=== PATIENT | female | born 1970 | race Hispanic/Latino ===

== ENCOUNTER 2019-02-09 12:37 | Inpatient (IN) | payer BC ==
[2019-02-09 13:44] LABS: SQUAMOUS EPITHIAL 8 /hpf (0-5); URINE BACTERIA RARE (<OCC); URINE BILIRUBIN 1+ (NEGATIVE); URINE BLOOD NEGATIVE (NEGATIVE); URINE CLARITY Hazy (Clear); URINE COLOR Amber (YELLOW); URINE GLUCOSE (UA) NORMAL (Normal); URINE LEUKOCYTE ESTERASE NEG Leu/uL (Negative); URINE PROTEIN 2+ mg/dL (NEGATIVE)
[2019-02-09] MEDS ORDERED: Sodium Chloride 0.9% 1,000 ML IV ONE (13:46)
[2019-02-09 13:58] LABS: BARBITURATES, UR NEGATIVE (NEGATIVE); PHENCYCLIDINE, UR NEGATIVE (NEGATIVE)
[2019-02-09] MEDS ORDERED: Sodium Chloride 0.9% 1,000 ML ONE (13:58)
[2019-02-09 14:00] LABS: BASO % 0.4 % (0.0-2.0); EOS % 0.2 % (0.0-4.0); HEMOGLOBIN 15.4 g/dL (11.0-16.0); LYMPH # 1.2 K/uL (1.0-4.3); LYMPH % 15.2 % (20.0-40.0); MEAN CELL VOLUME 102.2 fL (81.0-99.0); MEAN CORPUSCULAR HEMOGLOBIN 35.5 pg (27.0-31.0); MEAN CORPUSCULAR HGB CONC 34.8 g/dL (33.0-37.0); MEAN PLATELET VOLUME 8.8 fL (7.2-11.7); MONO # 0.5 K/uL (0.0-0.8); MONO % 6.7 % (0.0-10.0); NEUT # 6.2 K/uL (1.8-7.0); NEUT % 77.5 % (50.0-75.0); RBC 4.34 Mil/uL (3.80-5.20); RED CELL DISTRIBUTION WIDTH 13.3 % (11.5-14.5); WHITE BLOOD COUNT 8.1 K/uL (4.8-10.8)
[2019-02-09 14:05] LABS: BENZODIAZEPINES, UR POSITIVE (NEGATIVE); OPIATES, UR POSITIVE (NEGATIVE)
--- NOTE | 2019-02-09 14:12 | C.PDOC ---
History Of Present Illness 48 y/o female pt presents to the ER c/o abdominal pain, vomiting, diarrhea, and gas x1 day. Pt reports she is here for detox for both heroin and alcohol. Last heroin use was 30 minutes ago 1 bag, and last alcohol use was yesterday. Pt reports she is unable to consume any food without vomiting. Pt denies fever and chills. Last detox was 1.5 years ago in [place]. Time Seen by Provider: 02/09/19 13:31 Chief Complaint (Nursing): Substance Abuse History Per: Patient History/Exam Limitations: no limitations Onset/Duration Of Symptoms: Days (x1) Current Symptoms Are (Timing): Still Present Location Of Pain/Discomfort: Diffuse Past Medical History Reviewed: Historical Data, Nursing Documentation, Vital Signs Vital Signs: Last Vital Signs Temp 98.4 F 02/09/19 12:49 Pulse 106 H 02/09/19 12:49 Resp 18 02/09/19 12:49 BP 168/96 H 02/09/19 12:49 Pulse Ox 99 02/09/19 12:49 - Medical History PMH: Back Problems (Herniated Disc x2) Family History: States: Unknown Family Hx - Social History Hx Tobacco Use: Yes Hx Alcohol Use: Yes Hx Substance Use: Yes - Immunization History Hx Tetanus Toxoid Vaccination: No Hx Influenza Vaccination: No Hx Pneumococcal Vaccination: No Review Of Systems Constitutional: Positive for: Other (detox ). Negative for: Fever, Chills Cardiovascular: Negative for: Chest Pain, Palpitations Respiratory: Negative for: Shortness of Breath Gastrointestinal: Positive for: Nausea, Vomiting, Abdominal Pain, Diarrhea, Other (gas). Negative for: Hematochezia, Hematemesis Genitourinary: Negative for: Dysuria Neurological: Negative for: Headache, Dizziness Psych: Positive for: Withdrawal. Negative for: Suicidal ideation Physical Exam - Physical Exam Appears: Non-toxic, No Acute Distress Skin: Warm, Dry Head: Atraumatic, Normacephalic Eye(s): bilateral: Normal Inspection Ear(s): Bilateral: Normal Nose: Normal Oral Mucosa: Moist Throat: Normal, No Erythema, No Exudate Neck: Normal ROM, Supple Chest: Symmetrical Cardiovascular: Rhythm Regular Respiratory: Normal Breath Sounds, No Accessory Muscle Use, No Wheezing Gastrointestinal/Abdominal: Bowel Sounds (high pitched bowel sound ), Soft, Tenderness (epigastric ), No Distention, No Rebound Back: No CVA Tenderness Extremity: Normal ROM (x4) Extremity: Bilateral: Atraumatic Neurological/Psych: Oriented x3, Normal Speech, Normal Motor, Normal Sensation Gait: Steady ED Course And Treatment - Laboratory Results Result Diagrams: 02/09/19 13:56 02/09/19 13:56 Lab Results: Urine Color Kristie (YELLOW) 02/09/19 13:26 Urine Clarity Hazy (Clear) 02/09/19 13:26 Urine pH 6.0 (5.0-8.0) 02/09/19 13:26 Ur Specific [place] 1.026 (1.003-1.030) 02/09/19 13:26 Urine Protein 2+ mg/dL (NEGATIVE) H 02/09/19 13:26 Urine Glucose (UA) Normal mg/dL (Normal) 02/09/19 13:26 Urine Ketones Trace mg/dL (NEGATIVE) 02/09/19 13:26 Urine Blood Negative (NEGATIVE) 02/09/19 13:26 Urine Nitrate Negative (NEGATIVE) 02/09/19 13:26 Urine Bilirubin 1+ (NEGATIVE) H 02/09/19 13:26 Urine Urobilinogen 4.0 mg/dL (0.2-1.0) H 02/09/19 13:26 Ur Leukocyte Esterase Neg Leyla/uL (Negative) 02/09/19 13:26 Urine WBC (Auto) 3 /hpf (0-5) 02/09/19 13:26 Urine RBC (Auto) 1 /hpf (0-3) 02/09/19 13:26 Ur Squamous Epith Cells 8 /hpf (0-5) H 02/09/19 13:26 Urine Bacteria Rare (<OCC) 02/09/19 13:26 O2 Sat by Pulse Oximetry: 99 (RA) Pulse Ox Interpretation: Normal Medical Decision Making Medical Decision Making: plans: -- labs -- IV fluids -- pepcid -- zofran -- librium -- POC urine Patient reassessed. Symptoms have greatly improved. She is laying comfortable in bed. Labs reviewed; Slightly low Potassium. K-dur 20mg PO given. Patient is stable for transfer to Detox floor Admitted under Dr. 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 - Scribe Statement The provider has reviewed the documentation as recorded by the Alex Sullivan Do All medical record entries made by the Alex were at my direction and personally dictated by me. I have reviewed the chart and agree that the record accurately reflects my personal performance of the history, physical exam, medical decision making, and the department course for this patient. I have also personally directed, reviewed, and agree with the discharge instructions and disposition. Decision To Admit - Pt Status Changed To: Hospital Disposition Of: Inpatient - Admit Certification Admit to Inpatient:: After my assessment, the patient will require hospitalization for at least two midnights. This is because of the severity of symptoms shown, intensity of services needed, and/or the medical risk in this patient being treated as an outpatient. - InPatient: Physician Admission Certification:: patient will need at least 2 days to detox from severe alcohol use disorder - . Bed Request Type: Detox Patient Diagnosis: Alcohol use disorder, severe, dependence
[2019-02-09 14:15] LABS: ALB/GLOB RATIO 1.5 (1.0-2.1); ALBUMIN 5.2 g/dL (3.5-5.0); BLOOD UREA NITROGEN 7 mg/dL (7-17); CALCIUM 9.8 mg/dl (8.6-10.4); GFR NON-AFRICAN AMERICAN > 60; LIPASE 50 U/L (23-300)
[2019-02-09 14:21] LABS: ALT/SGPT 48 U/L (9-52); AST/SGOT 103 U/L (14-36)
[2019-02-09] MEDS ORDERED: Potassium Chloride 20 mEq ER Tab PO STA (15:04)
[2019-02-09] MEDS ORDERED: Potassium Chloride 20 mEq ER Tab PO ONE (15:32)
--- NOTE | 2019-02-09 15:43 | PCM.BM ---
<Omid Plaza - Last Filed: 02/09/19 15:40> Treatment Plan Problems - Problems identified on initial assessmt knowledge deficit : alcohol ,opiate use Date Initiated: 02/09/19 Time Initiated: 15:41 Assessment reference: NA Status: Active anxiety related to substance use Date Initiated: 02/09/19 Time Initiated: 15:42 Assessment reference: NA Status: Active denial Date Initiated: 02/09/19 Time Initiated: 15:43 Assessment reference: NA Status: Active Treatment assets and liabiliti Patient Assests: cooperative, ADL independent, cognitively intact Patient Liabilities: substance abuse - Milieu Protocol Maintain good personal hygiene: daily Encourage regular showers, daily Remind pa tient to perform daily oral care, daily Assist patient to perform ADL's Conduct patient checks and document Observation sheet: Q15 minutes Maintain personal safety: every shift Educate patient to report safety concerns to staff, every shift Monitor environment for contraband/sharps Medication safety: Monitor for expected outcome, potential side effects: every shift, Assess barriers to learning: every shift, Assess readiness for medication education: every shift <Kevin Martines - Last Filed: 02/10/19 23:22> - Diagnosis (1) Alcohol use disorder, severe, dependence Status: Acute Interventions: 02/09/19 23:22 * Assess 7x/week regarding severity of withdrawal * Educate regarding risks, benefits, side effects and alternatives of medications * Use Motivational Interviewing for abstinence * Use CBT for relapse prevention * Medication management for withdrawal symptoms * Encourage medication assisted treatment * <Oneida Owusu - Last Filed: 02/12/19 13:42> Family Contact Family involvement: Fela/SO not involved - Goals for Treatment Patient goals for treatment: Complete detox and transition to co-occurring IOP at [facility]. Discharge/Continuing Care - Education Needs Education Needs: Patient Medication, Patient Diagnosis/Disease Process, Patient Coping Skills, Patient Anger Management skills, Patient Placement options, Patient Community resources - Discharge Discharge Criteria: No longer exhibiting s/s of withdrawal, Reduction of target symptoms Discharge to:: Home - Treatment Team Participation Patient/Family/SO Statement: 02/12/19 13:41 "I'll go to IOP so I can return to work..." Discussed with Family/SO: No Was Patient/Family/SO present at Treatment Team Meeting: Yes
[2019-02-09] MEDS ORDERED: Aluminum Hydroxide/Magnesium Hydroxide Susp (30 mL) PO PRN (16:06)
--- NOTE | 2019-02-09 16:12 | PCM.PSYCH ---
Initial Psychiatric Evaluation - Initial Psychiatric Evaluation Type of Admission: Voluntary Legal Status: Capacity Chief Complaint (in patient's own words): "I am very sick!" History of Present Illness and Precipitating Events: The pt is seen, chart reviewed and case discussed She is a 48 y/o WF, , living with her BF, not working. BF is not supportive bc he too uses. She may be homeless bc of that She is here for opioid and alcohol detox: She admits to using up to 15 bags of heroin and 3-4 percocets per day. She did overdose within the last few months but not need narcan. She started 1.5 years ago and this is her second detox. She also drinks 10 drinks or more a day. Has had blackouts but no seizures. She may have had DTs but she is not sure. She also claims she doesn't let herself get into bad withdrawal as she keeps drinking. Smokes 2 ppd Denies other cigarettes Pt was in very bad withdrawal with 2-day long throwing up and not eating anything, along with many other wdw sxs CIWA>12 COWS is 9 and increasing - she prefers buprenorphine Psych: She suffers from depression and severe anxiety - no meds yet. NOt actively suicidal but has passive tiffany ideas. Tearful Medical; Back pain from disc - complicates her recovery as she resorts to percocets and heroin. Also, she has significant GI problems - given IV fluids in ED and meds Family psych: Both parents were alcoholics, brother used heroin and of AIDS Current Medications: Active Medications Generic Name Dose Route Start Last Admin Trade Name Freq PRN Reason Stop Dose Admin Al Hydrox/Mg Hydrox/Simethicone 30 ml 02/09/19 16:06 Maalox 30 Ml PO TID PRN Indigestion / Heartburn Clonidine HCl 0.1 mg 02/09/19 16:06 Catapres PO Q4 PRN COWS Score More or Equal to 5 Folic Acid 1 mg 02/09/19 16:15 Folic Acid PO DAILY SOO Gabapentin 300 mg 02/09/19 18:00 Neurontin PO BID SOO Hydroxyzine HCl 50 mg 02/09/19 16:09 Atarax PO Q6H PRN Anxiety Ibuprofen 600 mg 02/09/19 16:06 Motrin Tab PO Q6 PRN Pain, moderate (4-7) Loperamide HCl 2 mg 02/09/19 16:06 Imodium PO Q8 PRN Diarrhea Multivitamins 1 tab 02/09/19 16:15 Hexavitamin PO DAILY [facility] Ondansetron HCl 4 mg 02/09/19 16:06 Zofran Tab PO Q8 PRN Nausea/Vomiting Pantoprazole Sodium 20 mg 02/10/19 10:00 Protonix Ec Tab PO DAILY [facility] Thiamine HCl 100 mg 02/09/19 16:15 Vitamin B1 Tab PO DAILY [facility] Trazodone HCl 50 mg 02/09/19 16:08 Desyrel PO HS PRN Insomnia Past Psychiatric History - Past Psychiatric History Previous Treatment History: Intensive Outpatient Pertinent Medical Hx (Current Medical&Sleep Prob, Allergies): Allergies Allergy/AdvReac Type Severity Reaction Status Date / Time No Known Allergies Allergy Verified 02/09/19 12:53 Oxycodone HCl/Acetaminophen [Percocet 10-325 mg Tablet] 1 tab PO TID 02/09/19 Review of Systems - Psychiatric Psychiatric: Abnormal Sleep Pattern, Anhedonia, Anxiety, Change in Appetite, Depression, Difficulty Concentrating, Hopelessness, Irritability, Mood Swings, Panic Attacks. absent: Hallucinations, Homicidal Ideation, Suicidal Ideation (no plans or urge) Mental Status Examination - Personal Presentation Personal Presentation: Looks older than stated age - Affect Affect: Constricted - Motor Activity Motor Activity: Calm - Reliability in Providing Information Reliability in Providing Information: Good - Speech Speech: Organized - Mood Mood: Depressed, Anxious - Formal Thought Process Formal Thought Process: No Impairment - Cognitive Functions Orientation: Person, Place, Situation, Time Sensorium: Drowsy, Lethargic Attention/Concentration: Easily distracted Estimate of Intelligence: Average Judgement: Intact, as evidence by: Insight regarding need for hospitalization Memory: Recent intact, as evidence by: 3/3 object recall, Remote impaired as evidenced by: Inability to recall sig life events - Risk Risk: Withdrawal, Diminished functioning - Strength & Assets Inventory Strength & Assets Inventory: Cooperative - Limitations Limitations: Other DSM 5 DX - DSM 5 DSM 5 Diagnosis: Opioid withdrawal Alcohol withdrawal Opioid use d/o - severe Alcohol use d/o - severe Tobacco use d/o - severe Major depression, recurrent, severe, w/o psychosis MEME Cannabis use d/o - severe - Recommended/Plan of Treatment Treatment Recommendations and Plan of Treatment: Taper with subutex and librium Remeron for depression Protonix EC for stomach Gabapentin for augmentation and anxiety As needed medications All risks, benefits and alternatives of the meds discussed, and the pt agreed and understood. Attend groups and activities Supportive therapy and psychoeducation [place] for abstinence CBT for relapse prevention Encourage MAT Refer to rehab or IOP, and self-help groups Teach healthy lifestyle methods, i.e. diet, exercise, meditation Smoking cessation with SC Nicotine patch if needed 34 min Projected ELOS: 4-5 days Prognosis: good w treatment
[2019-02-09] MEDS: Multiple Vitamins Tab PO SCH (17:21)
[2019-02-10] MEDS ORDERED: Buprenorphine Hydrochloride 2 mg SL ONE ×3 (07:15→12:45)
[2019-02-10] MEDS: Pantoprazole 20 mg EC Tab PO SCH (10:08)
[2019-02-10] MEDS: Multiple Vitamins Tab PO SCH (10:08)
--- NOTE | 2019-02-10 10:53 | PCM.PYCHPN ---
Psychiatric Progress Note - Psychiatric Progress Note Patient seen today, length of contact: 15 min Patient Chief Complaint: I am feeling very anxious.' Problems Identified/Issues Discussed: Patient seen and evaluated, chart reviewed and discussed with the nurse. Patient reports withdrawal symptoms including anxiety, headaches, cramps, joint pains and nausea. She reports anxiety, irritability and poor sleep. However, she denies any feelings of hopelessness or helplessness. She denies any suicidal ideation or homicidal ideation. She denies any qa auditor or visual hallucinations. She is tolerating the withdrawal protocol very well and denies any side effects. Supportive therapy was given. Medication Change: Yes Medical Record Reviewed: Yes Mental Status Examination - Cognitive Function Orientation: Person, Place, Situation, Time Memory: Intact Attention: WNL Concentration: Poor Association: WNL Fund of Knowledge: Poor - Mood Mood: Anxious - Affect Affect: Constricted - Speech Speech: Soft - Formal Thought Process Formal Thought Process: No Impairment - Suicidal Ideation Suicidal Ideation: No - Homicidal Ideation Homicidal Ideation: No Goal/Treatment Plan - Goal/Treatment Plan Need for Continued Stay: Remain at risks for inpatient hospitalization Progress Toward Problem(s) and Goals/Treatment Plan: Opioid withdrawal Alcohol withdrawal Opioid use d/o - severe Alcohol use d/o - severe Tobacco use d/o - severe Major depression, recurrent, severe, w/o psychosis MEME Cannabis use d/o - severe Taper with subutex and librium Remeron for depression Protonix EC for stomach Gabapentin for augmentation and anxiety As needed medications All risks, benefits and alternatives of the meds discussed, and the pt agreed and understood. Attend groups and activities Supportive therapy and psychoeducation [place] for abstinence CBT for relapse prevention Encourage MAT Refer to rehab or IOP, and self-help groups Teach healthy lifestyle methods, i.e. diet, exercise, meditation Smoking cessation with [place] Nicotine patch if needed - Smoking Cessation Smoking Cessation Initiated: No
[2019-02-11] MEDS: Buprenorphine Hydrochloride 2 mg SL SCH (09:23)
[2019-02-11] MEDS: Multiple Vitamins Tab PO SCH (09:24)
[2019-02-11] MEDS: Pantoprazole 20 mg EC Tab PO SCH (09:24)
--- NOTE | 2019-02-11 12:02 | PCM.PYCHPN ---
Psychiatric Progress Note - Psychiatric Progress Note Patient seen today, length of contact: 15 min Patient Chief Complaint: I am feeling less anxious than yesterday' Problems Identified/Issues Discussed: Patient seen and evaluated, chart reviewed and discussed with the nurse. As per the staff, she is little better than yesterday. Patient still reports withdrawal symptoms including anxiety, headaches, cramps, joint pains and nausea. She reports some improvement in her anxiety, and irritability. She denies any suicidal ideation or homicidal ideation. She denies any information technology auditor or visual hallucinations. She is tolerating the withdrawal protocol very well and denies any side effects. Supportive therapy was given. Medication Change: Yes Medical Record Reviewed: Yes Mental Status Examination - Cognitive Function Orientation: Person, Place, Situation, Time Memory: Intact Attention: WNL Concentration: Poor Association: WNL Fund of Knowledge: Poor - Mood Mood: Anxious - Affect Affect: Constricted - Speech Speech: Soft - Formal Thought Process Formal Thought Process: No Impairment - Suicidal Ideation Suicidal Ideation: No - Homicidal Ideation Homicidal Ideation: No Goal/Treatment Plan - Goal/Treatment Plan Need for Continued Stay: Remain at risks for inpatient hospitalization Progress Toward Problem(s) and Goals/Treatment Plan: Opioid withdrawal Alcohol withdrawal Opioid use d/o - severe Alcohol use d/o - severe Tobacco use d/o - severe Major depression, recurrent, severe, w/o psychosis MEME Cannabis use d/o - severe Taper with subutex and librium Remeron for depression Protonix EC for stomach Gabapentin for augmentation and anxiety As needed medications All risks, benefits and alternatives of the meds discussed, and the pt agreed and understood. Attend groups and activities Supportive therapy and psychoeducation [place] for abstinence CBT for relapse prevention Encourage MAT Refer to rehab or IOP, and self-help groups Teach healthy lifestyle methods, i.e. diet, exercise, meditation Smoking cessation with NM Nicotine patch if needed - Smoking Cessation Smoking Cessation Initiated: No
[2019-02-11 20:44] VITALS: RESP 18
[2019-02-12] MEDS: Buprenorphine Hydrochloride 2 mg SL SCH (09:31)
[2019-02-12] MEDS: Multiple Vitamins Tab PO SCH (09:31)
[2019-02-12] MEDS: Pantoprazole 20 mg EC Tab PO SCH (09:31)
--- NOTE | 2019-02-12 13:34 | PCM.PYCHPN ---
Psychiatric Progress Note - Psychiatric Progress Note Patient seen today, length of contact: 15 min Patient Chief Complaint: "I am very sick!" Medication Change: Yes (detox changes daily) Medical Record Reviewed: Yes Mental Status Examination - Cognitive Function Orientation: Person, Place, Situation, Time Memory: Intact Attention: WNL Concentration: Poor Association: WNL Fund of Knowledge: Poor - Mood Mood: Anxious - Affect Affect: Constricted - Speech Speech: Soft - Formal Thought Process Formal Thought Process: No Impairment - Suicidal Ideation Suicidal Ideation: No - Homicidal Ideation Homicidal Ideation: No Goal/Treatment Plan - Goal/Treatment Plan Need for Continued Stay: Remain at risks for inpatient hospitalization Progress Toward Problem(s) and Goals/Treatment Plan: Taper with subutex and librium Remeron for depression Protonix EC for stomach Gabapentin for augmentation and anxiety As needed medications All risks, benefits and alternatives of the meds discussed, and the pt agreed and understood. Attend groups and activities Supportive therapy and psychoeducation [place] for abstinence CBT for relapse prevention Encourage MAT Refer to rehab or IOP, and self-help groups Teach healthy lifestyle methods, i.e. diet, exercise, meditation Smoking cessation with [place] Nicotine patch if needed 34 min
[2019-02-12 17:34] LABS: ALB/GLOB RATIO 1.7 (1.0-2.1); ALBUMIN 4.3 g/dL (3.5-5.0); ALT/SGPT 28 U/L (9-52); AST/SGOT 46 U/L (14-36); BLOOD UREA NITROGEN 13 mg/dL (7-17); CALCIUM 9.1 mg/dl (8.6-10.4); GFR NON-AFRICAN AMERICAN > 60
[2019-02-12] MEDS ORDERED: Magnesium Hydroxide Susp 30 ml UD PO PRN (18:24)
--- NOTE | 2019-02-13 07:55 | PCM.PYCHDC ---
Mental Status Examination - Mental Status Examination Orientation: Person Discharge Summary - Discharge Note Laboratory Data: Abnormal Lab Results 02/12/19 16:59 Sodium 138 Potassium 3.4 L Chloride 103 Carbon Dioxide 26 Anion Gap 12 BUN 13 Creatinine 0.7 Est GFR ( Amer) > 60 Est GFR (Non-Af Amer) > 60 Random Glucose 117 H Calcium 9.1 Magnesium 1.8 Total Bilirubin 0.4 AST 46 H D ALT 28 Alkaline Phosphatase 126 D Total Protein 6.8 Albumin 4.3 Globulin 2.5 Albumin/Globulin Ratio 1.7 Consultations:: List each consultation separately and include: 1. Reason for request. 2. Findings. 3. Follow-up Summary of Hospital Course include:: 1. Description of specific treatment plan utilized for patients during their course of treatmen. 2. Summarize the time- course for resolution of acute symptoms and/or regressed behaviors. 3. Describe issues identified and worked on during hospitalization. 4. Describe medication utilized. 5. Describe medical problems identified and treated. 6. Reassessment of suicide risk Summary of Hospital Course: The pt is seen, chart reviewed and case discussed She is a 48 y/o WF, , living with her , not working. is not supportive bc he too uses. She may be homeless bc of that She is here for opioid and alcohol detox: She admits to using up to 15 bags of heroin and 3-4 percocets per day. She did overdose within the last few months but not need narcan. She started 1.5 years ago and this is her second detox. She also drinks 10 drinks or more a day. Has had blackouts but no seizures. She may have had DTs but she is not sure. She also claims she doesn't let herself get into bad withdrawal as she keeps drinking. Smokes 2 ppd Denies other cigarettes Pt was in very bad withdrawal with 2-day long throwing up and not eating anything, along with many other wdw sxs CIWA>12 COWS is 9 and increasing - she prefers buprenorphine Psych: She suffers from depression and severe anxiety - no meds yet. NOt actively suicidal but has passive tiffany ideas. Tearful Medical; Back pain from disc - complicates her recovery as she resorts to percocets and heroin. Also, she has significant GI problems - given IV fluids in ED and meds Family psych: Both parents were alcoholics, brother used heroin and of AIDS The pt will go to [facility] Two tablets of suboxone rx'ed to help her complete her detox as she left a day early, but she did complete her alcohol detox. - Diagnosis (1) Alcohol use disorder, severe, dependence Current Visit: Yes Status: Acute - Final Diagnosis (DSM 5) Condition upon Discharge: STABLE Disposition: HOME/ ROUTINE Follow-up Treatment Plan: Taper with subutex and librium Remeron for depression Protonix EC for stomach Gabapentin for augmentation and anxiety As needed medications All risks, benefits and alternatives of the meds discussed, and the pt agreed and understood. Attend groups and activities Supportive therapy and psychoeducation [place] for abstinence CBT for relapse prevention Encourage MAT Refer to rehab or IOP, and self-help groups Teach healthy lifestyle methods, i.e. diet, exercise, meditation Smoking cessation with HI Nicotine patch if needed 34 min Prescriptions/Medication Reconciliation: Buprenorphine Hydrochloride [Subutex] 2 mg SL DAILY #2 tab Gabapentin [Neurontin] 300 mg PO BID #60 cap hydrOXYzine HCl [Atarax] 50 mg PO DAILY PRN #30 tab PRN Reason: Anxiety Mirtazapine [Remeron] 15 mg PO HS #30 tab traZODone [Desyrel] 50 mg PO HS PRN #30 tab PRN Reason: Insomnia
[2019-02-13 08:40] VITALS: BP 135/89; PULSE 90; TEMP 97.4; O2SAT 95
[2019-02-13] MEDS: Pantoprazole 20 mg EC Tab PO SCH (09:37)
[2019-02-13] MEDS: Multiple Vitamins Tab PO SCH (09:37)
[2019-02-13] MEDS: Buprenorphine Hydrochloride 2 mg SL SCH (09:38)
== END 2019-02-13 11:10 | disposition home or self-care (01) | DRG 895 ==
LOC: C.ER 12:37 → C.7D 15:05
PROVIDERS: ADMIT Psychiatry & Neurology Psychiatry; ATTEND Psychiatry & Neurology Psychiatry
PROC: HZ2ZZZZ Detoxification Services for Substance Abuse Treatment (ICD-10-PCS; principal; 2019-02-09)
PROC: HZ46ZZZ Group Counseling for Substance Abuse Treatment, Psychoeducation (ICD-10-PCS; 2019-02-09)
PROC: GZ3ZZZZ Medication Management (ICD-10-PCS; 2019-02-09)
PROC: HZ80ZZZ Medication Management for Substance Abuse Treatment, Nicotine Replacement (ICD-10-PCS; 2019-02-09)
PROC: HZ59ZZZ Individual Psychotherapy for Substance Abuse Treatment, Supportive (ICD-10-PCS; 2019-02-09)
DX: F11.23 Opioid dependence with withdrawal (principal); F10.239 Alcohol dependence with withdrawal, unspecified; F33.2 Major depressive disorder, recurrent severe without psychotic features; F12.90 Cannabis use, unspecified, uncomplicated; F41.1 Generalized anxiety disorder; F17.210 Nicotine dependence, cigarettes, uncomplicated; Z83.0 Family history of human immunodeficiency virus [HIV] disease; Z81.1 Family history of alcohol abuse and dependence